=== PATIENT | female | born 1955 | race Caucasian/White ===

== ENCOUNTER → 2016-09-03 | Outpatient (CLI) | payer BC ==
--- NOTE | ~2016-09-03 | MY7 ---
[facility] A Service of [facility] & [facility] RADIOLOGY TEXT RESULTS PATIENT: RADHA RAMIREZ LOCATION: [facility] : 55 UNIT #: [id number] AGE: [address]: Bertha Walton MD SEX: F ORDER DR: [id number] [facility] [address] [place], [place] [address] [id number] O MR#: [id number] Acc #: [id number] NAME: RADHA RAMIREZ : 1955 SEX: F STUDY DATE/TIME: 09/03/2016 12:13 UNIT: [facility] ROOM: STUDY DESCRIPTION: MY Mammogram Dx Dig Lt Attending Physician: Bertha Walton M.D. Referring Physician: Bertha Walton M.D. Ordering Physician: Bertha Walton M.D. Primary Care Physician: Shantanu Lo M.D. MEDICAL IMAGING REPORT This report is preliminary unless electronic signature is present EXAM Left breast digital diagnostic mammogram CAD DATE: 09/03/2016 HISTORY 61-year-old female with history of right breast cancer status post mastectomy in 2010. History of left breast reduction mammoplasty, left breast benign biopsy 12/13/2014. Family history of breast cancer in a maternal grandmother at the age of 60. COMPARISON Left breast screening mammogram 08/30/2015. Bilateral diagnostic mammogram 08/25/2014. FINDINGS CC, MLO and true ML views were obtained of the left breast utilizing digital technique and reviewed with an FDA-approved CAD device. Scattered fibroglandular densities are present. Architectural distortion in the upper outer left breast anterior to mid third is unchanged. Benign appearing coarse of dystrophic calcifications are present near the skin surface at previous biopsy site. These appear more coarse than on the previous examination in keeping with benign finding. A 7 mm oval nodule within the central third left breast lower inner quadrant is likewise stable since the 08/30/2015 examination. Benign postsurgical architectural distortion in the left breast. Right mastectomy. IMPRESSION 1. BIRADS 2. Benign findings. Routine left breast screening mammogram recommended in one year. The patient is advised to continue monthly STS. [facility] A Service of [facility] & [facility] RADIOLOGY TEXT RESULTS PATIENT: RADHA RAMIREZ LOCATION: [facility] : 55 UNIT #: [id number] AGE: [address]: Bertha Walton MD SEX: F ORDER DR: left breast self-examination and routine annual physician physical examination. Findings and recommendations were discussed with the patient. She verbalized understanding. Patients over the age of 40 are entered into a reminder system with target due date for the next mammogram. A result letter will also be sent to the patient. BIRADS: 2 - benign findings Dictated by... Jennifer Garcia M.D. THIS IS AN ELECTRONICALLY VERIFIED REPORT Jennifer Garcia M.D. at 09/04/2016 7:11 AM PHUC/brian TD: 09/03/2016 14:10 JOB #: [id number] MEDICAL IMAGING REPORT Page 1 of 1 COPY
--- NOTE | ~2016-09-03 | BD1 ---
[facility] A Service of [facility] RADIOLOGY TEXT RESULTS PATIENT: RADHA RAMIREZ LOCATION: [facility] : 55 UNIT #: [id number] AGE: [address]: Bertha Walton MD SEX: F ORDER DR: [id number] [facility] [address] [place], [place] [address] [id number] O MR#: [id number] Acc #: [id number] NAME: RADHA RAMIREZ : 1955 SEX: F STUDY DATE/TIME: 09/03/2016 12:35 UNIT: [facility] ROOM: STUDY DESCRIPTION: BD Dexa Bone Dens 1+ Site Attending Physician: Bertha Walton M.D. Referring Physician: Bertha Walton M.D. Ordering Physician: Bertha Walton M.D. Primary Care Physician: Shantanu Lo M.D. MEDICAL IMAGING REPORT This report is preliminary unless electronic signature is present EXAM DEXA scan HISTORY 61-year-old female; history of breast cancer; screening for osteoporosis. FINDINGS Bone density was assessed utilizing a Logic bone densitometer. Total bone dense the lumbar spine was calculated 1.108 g/cm sq with a T score of 0.6. Bone density within the proximal left femur was calculated at 0.958 g/cm sq with a T-score of 0.1. IMPRESSION Bone density within the proximal left femur and within the lumbar spine is within 1 standard deviation of the mean and therefore normal according to World Health Organization criteria. Dictated by... Rudy Chilel M.D. THIS IS AN ELECTRONICALLY VERIFIED REPORT Rudy Chilel M.D. at 09/04/2016 8:00 AM FLO/rajni TD: 09/03/2016 17:12 JOB #: [id number] MEDICAL IMAGING REPORT Page 1 of 1 COPY
== END | disposition home or self-care (01) ==
LOC: CMAM 11:28
DX: Z08 Encounter for follow-up examination after completed treatment for malignant neoplasm (principal); Z85.3 Personal history of malignant neoplasm of breast; Z90.11 Acquired absence of right breast and nipple; Z98.890 Other specified postprocedural states
CPT/HCPCS: 77080; G0206

== ENCOUNTER 2016-11-09 19:46 | Emergency (ER) | payer BC | END 2016-11-09 22:53 | disposition home or self-care (01) | LOC: CFTX 19:46 → CED 19:46 → CFTX 22:50 | DX: L02.212 Cutaneous abscess of back [any part, except buttock and flank] (principal); E11.9 Type 2 diabetes mellitus without complications; I10 Essential (primary) hypertension; E78.5 Hyperlipidemia, unspecified; Z90.49 Acquired absence of other specified parts of digestive tract; Z98.890 Other specified postprocedural states; Z88.2 Allergy status to sulfonamides; Z79.84 Long term (current) use of oral hypoglycemic drugs | CPT/HCPCS: 10060; 87070; 87205; 99282 ==